=== PATIENT | male | born 1970 | race Hispanic/Latino ===

== ENCOUNTER 2024-09-28 23:20 | Emergency (ER) | payer BC ==
[~2024-09-28] VITALS: Ht 165.1 cm; Wt 81.6 kg
--- NOTE | 2024-09-28 23:26 | NUR ---
UA CUP PROVIDED
--- NOTE | 2024-09-28 23:40 | ERN ---
General Chief Complaint: Hypertension Stated Complaint: HIGH BLOOD PRESSURE Time Seen by MD: 23:28 History of Present Illness Initial Comments 53-year-old male comes in with high blood pressure measured at his home to be systolic 225. He has never been to a doctor and is unaware of any medical problems that he may or may not have. He started measuring his blood pressure recently at his family member's request. He has absolutely no symptoms associated with the high blood pressure. No headache, no dizziness, no visual changes, no chest pain, no shortness of breath, no numbness or tingling. The only symptom he has, besides the blood pressure, is seeing a five pointed star of light surrounding lights off in the distance when driving at night. This has been going on for 5-6 months. Allergies: Coded Allergies: No Known Allergies (Unverified Allergy, Unknown, 09/28/24) Past Medical History Past Medical History: No Pertinent History Past Surgical History: None ROS Dictation Review of systems is negative beyond what is in the chief complaint. Physical Exam General Appearance: (+) no apparent distress Orientation: (+) alert, (+) oriented x 3 Head/Face Trauma: No Eye: bilateral eye normal inspection, bilateral eye PERRL, bilateral eye EOMI Ear, Nose, Throat: (+) hearing grossly normal, (+) normal ENT inspection, (+) moist mucous membraine, (+) normal pharynx, (+) normal TM Neck: (+) normal inspection, (+) supple, (+) full range of motion Respiratory: (+) chest non-tender, (+) lungs clear, (+) well ventilated Heart: (+) regular, (+) no gallop Vascular: (+) no edema, (+) normal peripheral pulse Gastrointestinal: (+) soft, (+) non-tender, (+) no organomegaly, (+) bowel sound present Results Laboratory and Microbiology Lab and Micro Result Laboratory Tests Test 09/28/24 23:55 White Blood Count 8.3 K/uL (4.8-10.8) Red Blood Count 4.96 MIL/uL (4.50-6.20) Hemoglobin 13.3 g/dL (14.0-18.0) L Hematocrit 40.4 % (42-54) L Mean Corpuscular Volume 81.5 fL (79-99) Mean Corpuscular Hemoglobin 26.8 pg (27.0-33.0) L Mean Corpuscular Hemoglobin Concent 32.9 g/dL (32.0-36.0) Red Cell Distribution Width 13.7 % (11.0-15.5) Platelet Count 142 K/uL (130-400) Mean Platelet Volume 13.4 fL (7.5-10.5) H Immature Granulocyte % (Auto) 0.2 % (0-1) Neutrophils (%) (Auto) 65.5 % (40.0-77.0) Lymphocytes (%) (Auto) 18.5 % (21.0-51.0) L Monocytes (%) (Auto) 9.7 % (3.0-13.0) Eosinophils (%) (Auto) 5.4 % (0.0-8.0) Basophils (%) (Auto) 0.7 % (0.0-5.0) Neutrophils # (Auto) 5.4 K/uL (1.8-7.7) Lymphocytes # (Auto) 1.5 K/uL (1.0-4.8) Monocytes # (Auto) 0.8 K/uL (0.1-1.0) Eosinophils # (Auto) 0.45 K/uL (0.00-0.70) Basophils # (Auto) 0.06 K/uL (0.00-0.20) Absolute Immature Granulocyte (auto 0.02 K/uL (0-1) Nucleated Red Blood Cells 0.0 % (0.0-0.19) Urine Color COLORLESS (YELLOW) Urine Appearance CLEAR (CLEAR) Urine pH 6.5 (5.0-8.0) Urine Specific [place] 1.001 (1.001-1.031) Urine Protein NEGATIVE mg/dL (NEGATIVE) Urine Glucose (UA) 300 mg/dL (NEGATIVE) H Urine Ketones NEGATIVE mg/dL (NEGATIVE) Urine Occult Blood NEGATIVE (NEGATIVE) Urine Nitrate NEGATIVE (NEGATIVE) Urine Bilirubin NEGATIVE mg/dL (NEGATIVE) Urine Urobilinogen 0.2 mg/dL (0.2-1.0) Urine Leukocyte Esterase NEGATIVE Verito/uL Sodium Level 142 mmol/L (136-145) Potassium Level 3.1 mmol/L (3.5-5.1) L Chloride Level 102 mmol/L (101-111) Carbon Dioxide Level 29 mmol/L (21-32) Blood Urea Nitrogen 11 mg/dL (7-18) Creatinine 1.2 mg/dL (0.5-1.3) Glomerular Filtration Rate Calc 72 mL/min (>90) Random Glucose 226 mg/dL (70-105) H Hemoglobin A1c 9.3 % (4.0-6.0) H Estimated Average Glucose (eAG) 220 mg/dL (70-126) H Total Calcium 8.8 mg/dL (8.5-10.1) Total Bilirubin 0.3 mg/dL (0.2-1.0) Aspartate Amino Transf (AST/SGOT) 21 U/L (10-37) Alanine Aminotransferase (ALT/SGPT) 20 U/L (12-78) Alkaline Phosphatase 99 U/L (50-136) Troponin I High Sensitivity 29 ng/L (4-75) B-Type Natriuretic Peptide 88 pg/mL (0-100) Total Protein 6.6 g/dL (6.0-8.3) Albumin 3.2 g/dL (3.5-5.0) L MDM Aside from getting the patient's blood pressure under control I will draw labs and obtain an EKG to assess any end-organ damage associated with his prolonged high blood pressures. Patient's blood pressure finally brought under control with labetalol after initially trying hydralazine and clonidine. Chemistry panel showed that the patient has a hemoglobin A1c consistent with a blood sugar of 220 constantly. CBC shows what maybe a microcytic anemia. ED Course Orders Procedure Category Date Status Time 12 Lead Ekg Tracing- EKG 09/28/24 Complete Technical 23:40 Comprehensive LAB 09/28/24 Complete Metabolic Panel 23:40 Cbc With Differential LAB 09/28/24 Complete 23:40 Troponin I High LAB 09/28/24 Complete Sensitivity 23:40 B-Type Natriuretic LAB 09/28/24 Complete Peptide 23:40 Urinalysis Profile LAB 09/28/24 Complete 23:40 Hydralazine 20mg Inj PHA 09/29/24 Complete (Apresoline 20mg In 00:30 Hemoglobin A1c LAB 09/29/24 Complete 00:55 Clonidine Hcl 0.2 Mg PHA 09/29/24 Complete Tablet (Catapres 0. 02:00 Labetalol 20mg Syg PHA 09/29/24 Complete (Trandate 20mg Syg) 03:00 Current Medications Medications (Trade) Dose Ordered Sig/Lance Route PRN Reason Start Time Stop Time Status Last Admin Dose Admin Clonidine HCl (CATApres 0.2 MG TAB) 0.2 mg ONCE ONCE PO 09/29/24 02:00 09/29/24 02:01 DC 09/29/24 01:59 Hydralazine HCl (APRESOLine 20MG INJ) 20 mg ONCE ONCE IV 09/29/24 00:30 09/29/24 00:31 DC 09/29/24 00:53 Labetalol HCl (TRANdate 20MG SYG) 10 mg ONCE ONCE IV 09/29/24 03:00 09/29/24 03:01 DC 09/29/24 02:48 Vital Signs Date Time Temp Pulse Resp B/P (MAP) Pulse Ox O2 Delivery O2 Flow Rate FiO2 09/29/24 03:13 98.2 75 16 139/64 98 Room Air* 0 21 09/29/24 02:48 98 203/111 09/29/24 01:59 95 200/104 09/28/24 23:32 98.2 88 18 197/115 98 Room Air* 0 21 09/28/24 23:22 98.2 89 20 192/117 99 Room Air DX & DISP Disposition: Discharge Departure Impression: Primary Impression: Hypertension Additional Impression: Hyperglycemia Condition: Stable Scripts Labetalol HCl (Labetalol HCl) 100 Mg Tablet 1 TAB PO BID PRN for IF SBP GREATER THAN 160 for 30 Days, #60 TAB 0 Refills Prov: VANESSA FAIRCHILD MD 09/29/24 Additional Instructions: You have not been to a doctor for decades and we have discovered during this emergency room visit that you have high blood pressure high glucose and possibly iron deficient see anemia. I have written a prescription for you to control your high blood pressure. Please take one tablet twice a day. If this drops your blood pressure too high you could take half a tablet twice a day. Please see your primary care physician to get your sugars under better control and to investigate your anemia. VANESSA FAIRCHILD MD Sep 28, 2024 23:40
--- NOTE | 2024-09-28 23:57 | EKG ---
[facility] Test Date: 2024-09-28 Test Time: 23:47:10 Pat Name: ANASTASIA MATA Department: [facility] Room: Gender: M [employer]: [id number] : 1970 Requested By: VANESSA FAIRCHILD Order Number: [id number] Reading MD: Gurmeet Gonsalez Measurements Intervals [place] Rate: 88 P: 25 WV: 158 QRS: 19 QRSD: 104 T: 34 QT: 375 QTc: 453 Interpretive Statements Sinus rhythm Probable left atrial enlargement Inferior infarct, old No previous ECG available for comparison Electronically Signed On 09-29-2024 10:33:54 CDT by Gurmeet Gonsalez Please click the below link to view image of tracing.
[2024-09-29 00:15] LABS: APPEARANCE,URINE CLEAR (CLEAR); GLUCOSE, URINE (UA) 300 mg/dL (NEGATIVE); LEUKOCYTE ESTERASE ,URINE NEGATIVE Leu/uL (NEGATIVE); NITRATE,URINE NEGATIVE (NEGATIVE); OCCULT BLOOD,URINE NEGATIVE (NEGATIVE)
[2024-09-29 00:16] LABS: ADD UA MICROSCOPIC NO
[2024-09-29 00:21] LABS: ASPARTATE AMINOTRANSFERASE 21.0 U/L (10-37); CREATININE 1.2 mg/dL (0.5-1.3); GLOMERULAR FILTR. RATE CALC 72.0 mL/min (>90); GLUCOSE,RANDOM 226.0 mg/dL (70-105); SODIUM SERUM 142.0 mmol/L (136-145); TOTAL PROTEIN, SERUM 6.6 g/dL (6.0-8.3); UREA NITROGEN, BLOOD 11.0 mg/dL (7-18)
[2024-09-29 00:32] LABS: IMMATURE GRANULOCYTE ABSOLUTE 0.02 K/uL (0-1); NUCLEATED RED BLOOD CELLS 0.0 % (0.0-0.19); PLATELET COUNT (AUTO) 142 K/uL (130-400); RED BLOOD CELL COUNT(AUTO) 4.96 MIL/uL (4.50-6.20); RED CELL DISTRIBUTION WIDTH 13.7 % (11.0-15.5); WHITE BLOOD COUNT (AUTO) 8.3 K/uL (4.8-10.8)
[2024-09-29] MEDS ORDERED: LABE100T7 PO (03:36)
[2024-09-29 03:51] VITALS: BP 124/68; PULSE 68; RESP 16; TEMP 98.1; O2SAT 98
== END 2024-09-29 04:02 | disposition home or self-care (01) ==
LOC: EDH 23:20
DX: I10 Essential (primary) hypertension (principal); R73.9 Hyperglycemia, unspecified
CPT/HCPCS: 99284; 83036; 84484; 80053; 83880; 85025; 81003; 36415; 93005; 96374; 96375; J0360